=== PATIENT | female | born 1965 | race African-American/Black ===

== ENCOUNTER → 2017-02-06 | Outpatient (CLI) | payer BC ==
[~2017-02-06] MED LIST: ACTOS PO
--- NOTE | ~2017-02-06 | MY29 ---
[facility] A Service of [facility] RADIOLOGY TEXT RESULTS PATIENT: ANA PALMA LOCATION: [facility] : 69 UNIT #: [id number] AGE: [address]: Francisco Haas MD SEX: F ORDER DR: [id number] [facility] [address] [place], [place] [address] [id number] O MR#: [id number] Acc #: [id number] NAME: ANA PALMA : 1965 SEX: F STUDY DATE/TIME: 02/06/2017 14:59 UNIT: [facility] ROOM: STUDY DESCRIPTION: MY ROLLY SCREENING W/ CAD BILAT Attending Physician: Francisco Haas M.D. Referring Physician: Francisco Haas M.D. Ordering Physician: Francisco Haas M.D. Primary Care Physician: Francisco Haas M.D. MEDICAL IMAGING REPORT This report is preliminary unless electronic signature is present EXAM Bilateral digital screening mammogram with CAD. INDICATIONS Breast cancer screening. 52-year-old asymptomatic female. No personal or family history of breast cancer. History of reduction mammoplasty in July 2014. COMPARISON STUDIES March 10, 2014, March 10, 2010, and December 10, 2008. FINDINGS There are scattered fibroglandular tissues. No suspicious findings are present. IMPRESSION No mammographic evidence of malignancy. Annual screening mammography and clinical breast exam are recommended. Patients over the age of 40 are entered into a reminder system with target due date for the next mammogram. A result letter will also be sent to the patient. BIRADS: 1 Negative. Dictated by... Juan David Small M.D. THIS IS AN ELECTRONICALLY VERIFIED REPORT Juan David Small M.D. at 02/10/2017 10:11 PM PK/derik [facility] A Service of [facility] RADIOLOGY TEXT RESULTS PATIENT: ANA PALMA LOCATION: [facility] : 69 UNIT #: [id number] AGE: [address]: Francisco Haas MD SEX: F ORDER DR: TD: 02/06/2017 23:08 JOB #: [id number] MEDICAL IMAGING REPORT Page 1 of 1 COPY
== END | disposition home or self-care (01) ==
LOC: CWCC 14:24
DX: Z12.31 Encounter for screening mammogram for malignant neoplasm of breast (principal)
CPT/HCPCS: G0202